=== PATIENT | female | born 1985 | race Caucasian/White ===

== ENCOUNTER 2017-09-15 09:02 | Inpatient (IN) | payer OTHER ==
--- NOTE | 2017-09-15 09:45 | History and Physical Report ---
History of Present Illness Date of examination: 09/15/17 Date of admission: 09/15/17 09:03 Chief complaint: Contractions History of present illness: 32yo G 3 P 2 0 0 2 here with c/o contractions. She denies VB or LOF. She reports positive movements. Her course is complicated by obesity. She is GBS negative. Past History Past Medical History: other (gestational diabetes with her last ) Past Surgical History: no surgical history Family/Genetic History: hypertension (father, mother, spouse), cancer (lung ) Social history: . denies: smoking, alcohol abuse - Obstetrical History Expected Date of Delivery: 09/21/17 Actual Gestation: 39 Week(s) 1 Day(s) : 3 Para: 2 Hx # Term Pregnancies: 2 Number of Pregnancies: 0 Spontaneous Abortions: 0 Induced : 0 Number of Living Children: 2 Medications and Allergies Allergies Allergy/AdvReac Type Severity Reaction Status Date / Time No Known Drug Allergies Allergy Unknown Verified 09/15/17 09:28 Active Meds: Active Medications Ephedrine Sulfate (Ephedrine Sulfate) 10 mg IV Q2M PRN PRN Reason: Hypotension Fentanyl (Sublimaze) 100 mcg IV Q2H PRN PRN Reason: Labor Pain Lactated Ringer's (Lactated Ringers) 1,000 mls @ 125 mls/hr IV DIRECT MIGUE Oxytocin/Sodium Chloride (Pitocin/Ns 20 Unit/1000ml Drip) 20 units in 1,000 mls @ 125 mls/hr IV DIRECT MIGUE Lidocaine (Xylocaine 2%) 20 ml INFILTRATI ONCE ONE Stop: 09/15/17 09:30 Mineral Oil (Mineral Oil) 30 ml PO QHS PRN PRN Reason: Constipation Terbutaline Sulfate (Brethine) 0.25 mg SUB-Q ONCE PRN PRN Reason: Hyperstimulation/Hypertonicity Terbutaline Sulfate (Brethine) 0.25 mg IVP ONCE PRN PRN Reason: Hyperstimulation/Hypertonicity Review of Systems All systems: negative - Vital Signs Vital signs: Vital Signs Pulse BP 93 H 121/63 09/15/17 09:36 09/15/17 09:36 Temp Pulse Resp BP Pulse Ox 93 H 121/63 09/15/17 09:36 09/15/17 09:36 - Physical Exam Breasts: Positive: deferred Cardiovascular: Regular rate, Normal S1, Normal S2, No murmurs Lungs: Positive: Clear to auscultation, Normal air movement Abdomen: Positive: normal appearance, soft Genitourinary (Female): Positive: normal external genitalia Vulva: both: normal Vagina: Positive: normal moisture Uterus: Positive: normal size, normal contour Anus/Rectum: Positive: normal perianal skin Extremities: Positive: normal Deep Tendon Reflex Grade: Normal +2 - Obstetrical FHR: auscultation normal, category 1 FHR comments: baseline 140, moderate variability, + accels, no decels Uterine Contraction Monitor Mode: External Cervical Dilatation: 7 Cervical Effacement Percentage: 70 station: -3 Uterine Contraction Frequency (min): 2-3 Uterine Contraction Pattern: Regular Results All other labs normal. Assessment and Plan - Patient Problems (1) Active labor at term Current Visit: Yes Status: Acute Plan to address problem: Admit to L&D with routine labor orders Anticipate vaginal delivery (2) 39 weeks gestation of Current Visit: Yes Status: Acute
[2017-09-15] MEDS ORDERED: ePHEDrine SULFATE IV PRN (10:00)
[2017-09-15] MEDS ORDERED: XYLOCAINE 2% INFILTRATI NR (10:00)
[2017-09-15] MEDS ORDERED: MINERAL OIL PO PRN (10:00)
[2017-09-15] MEDS ORDERED: PITOCin/NS 20 UNIT/1000ML DRIP 20 UNITS/1,000 ML BAG IV SCH ×2 (10:00→19:00)
[2017-09-15] MEDS ORDERED: BRETHINE SUB-Q PRN (10:00)
[2017-09-15] MEDS ORDERED: SUBLIMAZE IV PRN ×2 (10:00)
[2017-09-15] MEDS ORDERED: BRETHINE IVP PRN (10:00)
[2017-09-15] MEDS ORDERED: LACTATED RINGERS 1,000 ML IV SCH (10:00)
[2017-09-15 10:19] LABS: Hematocrit 35.3 % (30.3-42.9); Hemoglobin 11.8 gm/dl (10.1-14.3); Mean Corpuscular HGB Conc 33 % (30-34); Mean Corpuscular Hemoglobin 30 pg (28-32); Mean Corpuscular Volume 91 fl (79-97); Platelet Count 173 K/mm3 (140-440); Red Blood Count 3.89 M/mm3 (3.65-5.03); Red Cell Distribution Width 14.6 % (13.2-15.2)
[2017-09-15] MEDS ORDERED: PITOCin/NS 30 UNIT/500ML 30,000 MILLIUNITS/500 ML BAG IV ONE (13:29)
--- NOTE | 2017-09-15 13:33 | Event Note ---
Date: 09/15/17 S: Pt standing by the bedside after using the bathroom. Contractions still present but tolerable. O: Vital signs - BP 120/63, HR 82, R 18, temp 98.9 FHR - baseline 135, moderate variability, + accels, no decels CTXS - q 2-4 mins, palpate moderate SVE 7/70/-3/vtx/BBOW A: 32yo G 3 P 2 0 0 2 @ 39 weeks 1 day Active Labor Arrest of dilatation P: Continue routine labor orders Start Oxytocin for labor augmentation Anticipate vaginal delivery
--- NOTE | 2017-09-15 18:56 | Procedure Note ---
OB Delivery Note - Delivery Date of Delivery: 09/15/17 Surgeon: DELLA PEREZ Estimated blood loss: 300cc - Vaginal Delivery presentation: vertex Delivery position: OA Intrapartum events: prolonged active phase, shoulder dystocia (resolved with McRobert's positioning) Delivery induction: none Delivery augmentation: rupture of membranes, pitocin Delivery monitor: external FHT, external uterine Route of delivery: Delivery placenta: spontaneous Delivery cord: 3 umbilical vessels Episiotomy: none Delivery laceration: 2nd degree (perineal) Delivery repair: vicryl Anesthesia: local Delivery comments: delivered FLORI after shoulder dystocia resolved with McRobert's positioning, and infant placed on Mom's chest for [id number] bonding and delayed cord clamping. - Infant A at 1 minute: 8 at 5 minutes: 9 Gender: Male ([id number])
[2017-09-15] MEDS ORDERED: TUCKS PAD TP PRN (18:57)
[2017-09-15] MEDS ORDERED: BENADRYL PO PRN (18:57)
[2017-09-15] MEDS ORDERED: NORCO 5/325 PO PRN (18:57)
[2017-09-15] MEDS ORDERED: LANSINOH TP PRN (18:57)
[2017-09-15] MEDS ORDERED: DULCOLAX PR PRN (18:57)
[2017-09-15] MEDS ORDERED: ZOFRAN IV PRN (18:57)
[2017-09-15] MEDS ORDERED: PHENERGAN PR PRN (18:57)
[2017-09-15] MEDS ORDERED: TYLENOL PO PRN (18:57)
[2017-09-15] MEDS ORDERED: MILK OF MAGNESIA PO PRN (18:57)
[2017-09-15] MEDS ORDERED: PHENERGAN PO PRN (18:57)
[2017-09-15] MEDS ORDERED: SODIUM CHLORIDE FLUSH SYRINGE 10 ML IV NR (19:00)
[2017-09-15] MEDS ORDERED: DERMOPLAST TP PRN (21:02)
[2017-09-15] MEDS: FEOSOL PO SCH (21:28)
[2017-09-15] MEDS: MOTRIN PO SCH (21:28)
[2017-09-15] MEDS: COLACE PO SCH (21:28)
[2017-09-16] MEDS ORDERED: BOOSTRIX IM ONE (06:00)
[2017-09-16] MEDS ORDERED: M-M-R II VACCINE SUB-Q ONE (06:00)
[2017-09-16] MEDS: MOTRIN PO SCH ×4 (06:22→18:25)
[2017-09-16 08:41] LABS: Hematocrit 30.2 % (30.3-42.9); Hemoglobin 10.2 gm/dl (10.1-14.3)
[2017-09-16] MEDS: PRENATAL VITAMIN PO SCH (11:21)
[2017-09-16] MEDS: FEOSOL PO SCH ×2 (11:21→23:52)
[2017-09-16] MEDS: COLACE PO SCH ×2 (11:22→23:52)
[2017-09-16] MEDS ORDERED: Fluarix Quad 2017-2018(36 MOS+ IM ONE (12:00)
--- NOTE | 2017-09-16 15:08 | Progress Note ---
Assessment and Plan - Patient Problems (1) (normal spontaneous vaginal delivery) Current Visit: Yes Status: Acute Plan to address problem: PPD 1 - stable Continue routine PP orders Discharge to home 09/17/17 F/U @ [facility] in 6 weeks fpr PP exam Subjective - Subjective Date of service: 09/16/17 Principal diagnosis: Normal Spontaneous Vaginal Delivery Interval history: 32yo G 3 P 3 0 0 s/p on 09/15/17 Patient reports: appetite normal, voiding normally, pain well controlled, ambulating normally : doing well, nursing well Objective - Vital Signs Latest vital signs: Vital Signs Temp Pulse Resp BP BP Pulse Ox 09/16/17 08:35 98.0 F 70 18 114/63 99 09/16/17 01:21 98.3 F 93 H 20 120/63 98 09/15/17 20:55 98.4 F 78 20 122/65 98 09/15/17 20:04 88 120/59 09/15/17 20:00 97.8 F 88 20 120/59 09/15/17 18:56 88 131/55 09/15/17 18:40 98.2 F 17 09/15/17 18:24 88 98 09/15/17 18:19 90 97 09/15/17 18:14 94 H 95 09/15/17 18:13 96 H 94 09/15/17 18:09 99 H 96 09/15/17 18:08 92 H 93 09/15/17 18:04 89 97 18 17:59 97 H 98 18 17:56 87 94 18 17:54 89 93 09/15/17 17:49 93 H 94 18 17:44 105 H 94 18 17:39 87 97 18 17:34 76 94 18 17:29 92 H 93 18 17:24 83 96 18 17:23 89 130/82 93 09/15/17 17:19 96 H 96 18 17:14 87 97 09/15/17 17:12 90 94 18 17:09 84 97 09/15/17 17:04 88 97 09/15/17 16:59 86 97 18 16:54 86 96 09/15/17 16:49 85 98 09/15/17 16:44 90 97 09/15/17 16:39 86 95 09/15/17 16:34 103 H 94 09/15/17 16:33 105 H 91 09/15/17 16:29 106 H 96 09/15/17 16:22 91 H 91 09/15/17 16:19 88 98 09/15/17 16:14 96 H 98 09/15/17 16:09 103 H 98 09/15/17 16:04 96 H 97 09/15/17 16:00 98.7 F 18 09/15/17 15:59 93 H 96 09/15/17 15:54 96 H 97 09/15/17 15:49 96 H 97 09/15/17 15:44 85 97 09/15/17 15:39 85 97 Intake and Output 09/15/17 09/16/17 09/16/17 23:59 07:59 15:59 Intake Total 252 Output Total 300 Balance -48 Intake: IV 12 PITOCin/NS 30 UNIT/500ML 12 30,000 milliunits In 500 ml @ 2 MILLIUNITS/MIN 2 mls/hr IV DIRECT ONE Rx#:[id number] Oral 240 Output: Urine 300 Void 300 Other: Total, Intake Amount 240 Total, Output Amount 300 Estimated Blood Loss 300 - Exam Cardiovascular: Present: Regular rate, Normal S1, Normal S2, No murmurs Lungs: Present: Clear to auscultation, Normal air movement Abdomen: Present: normal appearance, soft Vulva: both: laceration/episiotomy (well approximated) Uterus: Present: normal, firm, fundal height at umbilicus Extremities: Present: normal Deep Tendon Reflex Grade: Normal +2 - Labs Labs: Abnormal lab results 09/16/17 Range/Units 08:16 Hct 30.2 L (30.3-42.9) %
--- NOTE | 2017-09-16 15:15 | Discharge Summary ---
Providers - Providers Date of Admission: 09/15/17 09:03 Date of discharge: 09/17/17 Attending physician: ROSI ANDRES MD Primary care physician: ROSI ANDRES MD Hospitalization Reason for admission: active labor, IUP at term Delivery: Episiotomy: none Laceration: 2nd degree (perineal) complications: none Discharge diagnosis: IUP at term delivered baby: male Hospital course: Uncomplicated Condition at discharge: Stable Disposition: HI-01 TO HOME OR SELFCARE - Discharge Diagnoses (1) (normal spontaneous vaginal delivery) Status: Acute Plan - Provider Discharge Summary Activity: routine, no sex for 6 weeks, no heavy lifting 4 weeks, no strenuous exercise Diet: routine Instructions: routine Additional instructions: [] Smoking cessation referral if applicable(refer to patient education folder for contact #) [] Refer to [facility] Book[facility] Call your doctor immediately for: * Fever > 100.5 * Heavy vaginal bleeding ( >1 pad per hour) * Severe persistent headache * Shortness of breath * Reddened, hot, painful area to leg or breast * Drainage or odor from incision. * Keep incision clean and dry at all times and follow doctor's instructions regarding bathing/showering - Follow up plan Follow up: ROSI ANDRES MD [Primary Care Provider] - 6 Weeks (F/U @ [facility] in 6 weeks for PP exam)
[2017-09-17] MEDS: MOTRIN PO SCH ×3 (00:09→11:56)
[2017-09-17 09:24] VITALS: BP 102/64
[2017-09-17] MEDS: FEOSOL PO SCH (11:57)
[2017-09-17] MEDS: PRENATAL VITAMIN PO SCH (11:57)
[2017-09-17] MEDS: COLACE PO SCH (11:57)
== END 2017-09-17 18:26 | disposition home or self-care (01) | DRG 775 ==
LOC: TRG 09:02 → LD 09:03 → TRG 09:03 → OB 20:43
PROVIDERS: ADMIT Obstetrics & Gynecology; ATTEND Obstetrics & Gynecology
PROC: 0KQM0ZZ Repair Perineum Muscle, Open Approach (ICD-10-PCS; principal; 2017-09-15)
PROC: 10E0XZZ Delivery of Products of Conception, External Approach (ICD-10-PCS; 2017-09-15)
PROC: 3E0234Z Introduction of Serum, Toxoid and Vaccine into Muscle, Percutaneous Approach (ICD-10-PCS; 2017-09-16)
DX: O66.0 Obstructed labor due to shoulder dystocia (principal); Z68.41 Body mass index [BMI] 40.0-44.9, adult; O99.214 Obesity complicating childbirth; O70.1 Second degree perineal laceration during delivery; E66.9 Obesity, unspecified; O24.429 Gestational diabetes mellitus in childbirth, unspecified control; O62.0 Primary inadequate contractions; Z37.0 Single live birth; Z3A.39 39 weeks gestation of pregnancy; Z82.49 Family history of ischemic heart disease and other diseases of the circulatory system; Z80.1 Family history of malignant neoplasm of trachea, bronchus and lung; Z23 Encounter for immunization
CPT/HCPCS: 36415; 85014; 85018; 85027; 86592; 86850; 86900; 86901; 90471; 90686; 90715; J2590; J3010; J7120